=== PATIENT | female | born 1970 | race African-American/Black ===

== ENCOUNTER → 2024-07-13 | Day surgery (SDC) | payer OTHER | END | disposition home or self-care (01) | LOC: JRADUS-SUR 10:51 | PROVIDERS: ATTEND Surgery | PROC: 0HBU0ZX Excision of Left Breast, Open Approach, Diagnostic (ICD-10-PCS; principal; 2024-07-13) | DX: N62 Hypertrophy of breast (principal); I10 Essential (primary) hypertension; K21.9 Gastro-esophageal reflux disease without esophagitis; E55.9 Vitamin D deficiency, unspecified; E11.9 Type 2 diabetes mellitus without complications; J45.909 Unspecified asthma, uncomplicated | CPT/HCPCS: 19281 ==

== ENCOUNTER 2024-07-16 04:16 | Day surgery (SDC) | payer OTHER ==
[2024-07-14 13:08] VITALS: BMI 26.9
[2024-07-16] MEDS ORDERED: LIDOCAINE HCL 1%, 10 MG/ML (20ML VIAL) ONE (09:57)
[2024-07-16] MEDS ORDERED: PROPOFOL 20 ML ONE (10:53)
[2024-07-16] MEDS ORDERED: ONDANSETRON 4 MG/2 ML VIAL ONE (10:53)
[2024-07-16] MEDS ORDERED: ROCURONIUM BROMIDE 50 MG/5 ML SYRINGE ONE (10:53)
[2024-07-16] MEDS ORDERED: DEXAMETHASONE SOD PHOSPHATE 4 MG/1 ML VIAL ONE (10:53)
[2024-07-16] MEDS ORDERED: MIDAZOLAM HCL 2 MG/2 ML SINGLE DOSE VIAL ONE (10:56)
[2024-07-16] MEDS: ceFAZolin SODIUM 1 GM VIAL IVPB ONE (11:11)
[2024-07-16] MEDS: LIDOCAINE HCL 1%, 10 MG/ML (20ML VIAL) NR ONE ×3 (11:13)
[2024-07-16] MEDS ORDERED: IBUPROFEN 800 MG/8 ML IJ IVPB PRN (12:08)
[2024-07-16] MEDS ORDERED: ACETAMINOPHEN 500 MG TABLET (FP) PO PRN (12:10)
[2024-07-16] MEDS ORDERED: ACETAMINOPHEN INJECTION 100 ML ONE (12:17)
[2024-07-16] MEDS: LACTATED RINGERS SOLUTION 1,000 ML IV SCH (12:27)
[2024-07-16] MEDS: ACETAMINOPHEN 1000 MG/100 ML BAG IVPB ONE (12:28)
[2024-07-16 13:26] VITALS: RESP 18
[2024-07-16 14:51] VITALS: BP 145/96; PULSE 107; TEMP 97.5
== END 2024-07-16 14:50 | disposition home or self-care (01) ==
LOC: JASU-SURG 04:16
PROVIDERS: ATTEND Surgery
PROC: 0HBU0ZX Excision of Left Breast, Open Approach, Diagnostic (ICD-10-PCS; principal; 2024-07-16 12:00)
DX: N62 Hypertrophy of breast (principal); I10 Essential (primary) hypertension; J45.909 Unspecified asthma, uncomplicated; E11.9 Type 2 diabetes mellitus without complications; E78.5 Hyperlipidemia, unspecified; E55.9 Vitamin D deficiency, unspecified; K21.9 Gastro-esophageal reflux disease without esophagitis
CPT/HCPCS: 76098-TC-FY; 88305-TC; 88307-TC; 94760; J0131